=== PATIENT | female | born 1995 | race Asian ===

== ENCOUNTER 2022-10-23 19:28 | Emergency (ER) | payer OTHER, SELFPAY ==
[2022-10-23 19:34] VITALS: BP 130/80; PULSE 67; RESP 16; TEMP 37.3; O2SAT 100; BMI 27.3
--- NOTE | 2022-10-23 19:40 | DI.RAD.S_ITS ---
P or ROCEDURE: XR ANKLE RT MIN 3V INDICATIONS: injury, pain, non wt bearing, swelling TECHNIQUE: 3 views of the ankle were acquired. COMPARISON: None. FINDINGS: Bones: No fractures or dislocations. There is mild midfoot degeneration. Ankle mortise is normally aligned. No suspicious bony lesions. Soft tissues: No tibiotalar joint effusion. Achilles tendon appears normal. IMPRESSION: 1. No fracture or dislocation. Dictated by: Rolf García M.D. on 10/23/2022 at 20:20 Approved by: Rolf García M.D. on 10/23/2022 at 20:21
--- NOTE | 2022-10-23 20:38 | ED_ITS ---
HPI - Extremity Injury (Lower) General Chief Complaint: Extremity Injury, Lower Stated Complaint: right heel/ foot injury Time Seen by Provider: 10/23/22 20:33 Source: patient Mode of arrival: Wheelchair Limitations: no limitations History of Present Illness HPI Narrative: Patient is a 27-year-old female who is here for evaluation of a right ankle/Achilles tendon injury. States she was playing volleyball. She stated that she felt like someone kicked her in the back of the leg. She would pain. Since that time she is had difficulty walking. No prior injuries. Related Data Previous Rx's Medication Instructions Recorded hydrocodone 5 mg-acetaminophen 325 1 tab PO Q4-6H PRN pain #10 tabs 10/23/22 mg tablet Allergies Allergy/AdvReac Type Severity Reaction Status Date / Time No Known Drug Allergies Allergy Verified 10/23/22 21:17 Review of Systems Constitutional Constitutional: Reports system reviewed and no additional complaints, except as documented Musculoskeletal Musculoskeletal: Reports system reviewed and no additional complaints, except as documented Integumentary/Breasts Skin/Breast: Reports system reviewed and no additional complaints, except as documented Neurologic Neurologic: Reports system reviewed and no additional complaints, except as documented Patient History Social History Smoking Status: Current every day smoker Smoking Status: Current every day smoker tobacco type: vaping alcohol intake frequency: holidays/special occasions only Substance Use Type: does not use Exam Initial Vital Signs Initial Vital Signs: Vital Signs Temperature 99.2 F 10/23/22 19:34 Pulse Rate 67 10/23/22 19:34 Respiratory Rate 16 10/23/22 19:34 Blood Pressure 130/80 10/23/22 19:34 Pulse Oximetry 100 10/23/22 19:34 Oxygen Delivery Method 10/23/22 19:34 Cardio Pulses: dorsalis pedis present on the right Skin General: no rashes or lesions noted Neuro Sensory Exam: no sensory deficits noted Extrem Other: Her right foot is unremarkable. She does have tenderness over the Achilles tendon. It does appear that she has someone of a deficit in the right Achilles tendon although I do not think it is completely toward as there is still fibers that attaches to the posterior calcaneus that go up the calf muscle. Patient is tender along this area. She can flex and extend however it is very difficult for her and she states that it feels like it is weak. Procedures Orthopedic Splinting/Casting Injury #1: Side: right Lower Extremity Injury Location: ankle Lower Extremity Immobilizer: posterior splint Other Orthopedic Equipment: crutches Post splinting neuro exam: intact Post splinting vascular exam: intact Placed by: Nursing Course Orders Ordered: ED Orders 10/23/22 19:40 XR ankle RT min 3V Stat Discontinued Medications Hydrocodone Bitart/Acetaminophen (Hydrocodone/Acet 5/325 Tablet) 1 tab PO NOW ONE Stop: 10/23/22 20:39 Last Admin: 10/23/22 20:44 Dose: 1 tab Documented By: NOAM Hydrocodone Bitart/Acetaminophen (Hydrocodone/Acet 5/325 Prepack) 1 bottle MISC SEEINSTR ONE Stop: 10/23/22 21:41 Last Admin: 10/23/22 21:45 Dose: 1 bottle Documented By: NOAM Vital Signs Vital signs: Vital Signs - 8 hr 10/23/22 19:34 10/23/22 21:52 Temperature 99.2 F Pulse Rate 67 54 L Respiratory Rate 16 18 Blood Pressure 130/80 115/59 L Pulse Oximetry 100 97 Oxygen Delivery Method Room Air Room Air MDM - Extremity Injury (Lower) Differential Diagnosis Differential diagnosis: Likely ankle sprain and strain, ankle fracture and other (Ligamentous injury) Condition is:: Well Controlled Imaging Data Extremity x-ray #1: Radiologist's Impression: [address] [address] XRay Report Signed Patient: Sandra [facility] MR#: [id number] : 1995 Acct:[id number] Age/Sex: 27 / F Date of Service: 10/23/22 Loc: ED Accession Number: [id number] ?? Procedure: XR ankle RT min 3V Ordering Provider: Ian Vo D.O. or MANJITURE:? XR ANKLE RT MIN 3V ? INDICATIONS:? injury, pain, non wt bearing, swelling ? TECHNIQUE:? 3 views of the ankle were acquired.? ? COMPARISON:? None. ? FINDINGS:? ? Bones:? No fractures or dislocations.? There is mild midfoot degeneration.? Ankle mortise is normally aligned.? No suspicious bony lesions.? ? Soft tissues:? No tibiotalar joint effusion.? Achilles tendon appears normal.? ? ? IMPRESSION:? ? 1. No fracture or dislocation.? Dictated by: Rolf García M.D. on 10/23/2022 at 20:20 ? ? Approved by: Rolf García M.D. on 10/23/2022 at 20:21? MDM Narrative Medical decision making narrative: Patient's exam is somewhat concerning about at least a partial Achilles tendon tear. The Achilles tendon appears intact on the x-ray however her exam is consistent with a tear. I do not think it is a complete tears there still seems to be some fibers attached. The rest of her ankle x-ray is unremarkable. Patient was placed in a posterior splint in plantar flexion and was made nonweightbearing and given crutches. She was given a copy of her x-rays CD. She was instructed that on Wednesday she needs to follow up with the Orthopedic Department on the [facility] did discuss further evaluation and treatment. Patient expressed understanding and agreement with plan. Discharge Plan Departure Patient Disposition: Home Clinical Impression: Injury of right Achilles tendon Instructions: Achilles Tendon Rupture, How to Take Care of Your Splint Activity Restrictions/Additional Instructions: You do need to keep the splint on and keep it clean and keep it dry. Use the crutches. Do not walk on your right leg. On Wednesday contact the Orthopedic Department on the [facility] for a follow-up. Return to the emergency department for any new symptoms. Prescriptions: New hydrocodone-acetaminophen 5-325 mg tablet 1 tab PO Q4-6H PRN (Reason: pain) Qty: 10 0RF Stand Alone Forms: Patient Portal/API
[2022-10-23] MEDS: HYDROCODONE/ACET 5/325 TABLET 1 TAB PO (20:44)
[2022-10-23] MEDS: HYDROCODONE/ACET 5/325 PREPACK 1 BOTTLE MISC (21:45)
[2022-10-23 21:52] VITALS: BP 115/59; PULSE 54; RESP 18; O2SAT 97
== END 2022-10-23 22:14 | disposition home or self-care (01) ==
PROVIDERS: Emergency Provider Emergency Medicine
DX: S86.001A Unspecified injury of right Achilles tendon, initial encounter (principal); Y93.68 Activity, volleyball (beach) (court)
CPT/HCPCS: 29515; 73610; 99283